=== PATIENT | female | born 1975 | race African-American/Black ===

== ENCOUNTER 2016-12-16 21:34 | Emergency (ER) | payer OTHER ==
--- NOTE | 2016-12-16 21:47 | ER Document Report ---
ED Medical Screen (RME) - General Stated Complaint: CHEST PAIN Notes: Patient complains of left neck pain for about 3 days. Went to get a massage to see if it would help with neck pain. States chest pain started yesterday and is constant. Pain radiates to back and arm. Patient states her right calf is feeling very tight and a pulling sensation. 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 Patient is currently not on blood thinners. Patient complains of shortness of breath, but denies nausea or vomiting. Patient denies any recent long distance travel. Patient denies cough or congestion. I have greeted and performed a rapid initial assessment of this patient. A comprehensive ED assessment and evaluation of the patient, analysis of test results and completion of the medical decision making process will be conducted by additional ED providers. TRAVEL OUTSIDE OF THE [place] IN LAST 30 DAYS: No - Related Data Allergies/Adverse Reactions: No Known Allergies Allergy (Verified 05/19/14 17:59) Past Medical History - Past Medical History Cardiac Medical History: Reports: Hx Pulmonary Embolism Past Surgical History: Reports: Hx Section - Immunizations Hx Diphtheria, Pertussis, Tetanus Vaccination: Yes Physical Exam - Respiratory Respiratory status: No respiratory distress Breath sounds: Normal - Extremities Notes: Right calf tender to palpation.
[2016-12-16] MEDS ORDERED: ASPIRIN 81 MG TABLET, CHEWABLE PO ONE (21:49)
[2016-12-16 22:20] LABS: ABSOLUTE BASOPHILS # (AUTO) 0.1 10^3/uL (0.0-0.2); ABSOLUTE LYMPHOCYTES (AUTO) 2.8 10^3/uL (0.5-4.7); ABSOLUTE MONOCYTES (AUTO) 0.6 10^3/uL (0.1-1.4); ABSOLUTE NEUT (AUTO) 4.8 10^3/uL (1.7-8.2); BASOPHILS % (AUTO) 0.9 % (0-2); EOSINOPHILS % (AUTO) 0.4 % (0-6); HEMATOCRIT 30.8 % (36.0-47.0); HEMOGLOBIN 9.6 g/dL (12.0-15.5); LYMPHOCYTES % (AUTO) 33.8 % (13-45); MEAN CORPUSCULAR HEMOGLOBIN 21.5 pg (27.0-33.4); MEAN CORPUSCULAR HGB CONC 31.2 g/dL (32.0-36.0); MEAN CORPUSCULAR VOLUME 69 fl (80-97); MONOCYTES % (AUTO) 7.2 % (3-13); RED BLOOD COUNT 4.47 10^6/uL (3.72-5.28); RED CELL DISTRIBUTION WIDTH 20.1 % (11.5-14.0); SEGMENTED NEUTROPHILS % (AUTO) 57.7 % (42-78); WHITE BLOOD COUNT 8.3 10^3/uL (4.0-10.5)
[2016-12-16 22:25] LABS: PROTHROMBIN TIME 12.8 SEC (11.4-15.4)
[2016-12-16 22:28] LABS: D-DIMER 0.81 ug/mL (0.00-0.50)
[2016-12-16 22:35] LABS: ALANINE AMINOTRANSFERASE 16 U/L (9-52); ALBUMIN 4.1 g/dL (3.5-5.0); ALKALINE PHOSPHATASE 94 U/L (38-126); ANION GAP 15 (5-19); ASPARTATE AMINO TRANSFERASE 14 U/L (14-36); BILIRUBIN,DIRECT 0.1 mg/dL (0.0-0.4); BILIRUBIN,TOTAL 0.4 mg/dL (0.2-1.3); BLOOD UREA NITROGEN 9 mg/dL (7-20); CALCIUM 9.8 mg/dL (8.4-10.2); CARBON DIOXIDE 22 mmol/L (22-30); CHLORIDE 103 mmol/L (98-107); CREATINE KINASE 534 U/L (30-135); CREATININE RESULT 0.58 mg/dL (0.52-1.25); GLUCOSE 107 mg/dL (75-110); POTASSIUM 3.5 mmol/L (3.6-5.0); SODIUM 139.8 mmol/L (137-145); TOTAL PROTEIN 7.3 g/dL (6.3-8.2)
[2016-12-16 22:46] LABS: CREATINE KINASE MB < 0.22 ng/mL (<4.55); TROPONIN I < 0.012 ng/mL
[2016-12-16] MEDS ORDERED: DIAZEPAM INJ 10 MG/2 ML DISP.SYRIN IV ONE (22:58)
--- NOTE | 2016-12-16 23:00 | ER Document Report ---
ED General - General Chief Complaint: Chest Pain Stated Complaint: CHEST PAIN Notes: Patient is a 41-year-old female that comes emergency department with 2 complaints. She states that 3 days ago she woke up with a "crick" in her neck, states that this progressed during the day and became increasingly painful to move in the left side of her neck extending progressively down into her left shoulder area in the back. She states she tried had this massaged and try to take ibuprofen but it only seemed to worsen. She denies any injury, headache, dizziness, fever. Patient also states that for the past 2 days she has felt some pains in the left side of her chest, she states that she feels short of breath at times. She states she also has a sore lower calf muscle on the right leg that started today. Patient has a history of PE in the past when she was on control, used to be on Coumadin but has not been for years. Patient denies smoking, recent travel, recent surgery. Patient denies any other medical history. TRAVEL OUTSIDE OF THE [place] IN LAST 30 DAYS: No - Related Data Allergies/Adverse Reactions: No Known Allergies Allergy (Verified 05/19/14 17:59) Past Medical History - General Information source: Patient, Relative - Significant other - Social History Smoking Status: Never Smoker Chew tobacco use (# tins/day): No Frequency of alcohol use: None Drug Abuse: None Lives with: Family Family History: Reviewed & Not Pertinent Patient has suicidal ideation: No Patient has homicidal ideation: No - Past Medical History Cardiac Medical History: Reports: Hx Pulmonary Embolism Renal/ Medical History: Denies: Hx Peritoneal Dialysis Past Surgical History: Reports: Hx Section - Immunizations Hx Diphtheria, Pertussis, Tetanus Vaccination: Yes Review of Systems - Review of Systems Constitutional: No symptoms reported EENT: No symptoms reported Cardiovascular: See HPI Respiratory: See HPI Gastrointestinal: No symptoms reported Genitourinary: No symptoms reported Female Genitourinary: No symptoms reported Musculoskeletal: See HPI Skin: No symptoms reported Hematologic/Lymphatic: No symptoms reported Neurological/Psychological: No symptoms reported Physical Exam - Vital signs Vitals: Temp Pulse Resp BP Pulse Ox 98.7 F 103 H 18 144/107 H 99 12/16/16 21:53 12/16/16 21:53 12/16/16 21:53 12/16/16 21:53 12/16/16 21:53 Interpretation: Normal - General General appearance: Appears well, Alert In distress: None - HEENT Head: Normocephalic, Atraumatic Eyes: Normal Pupils: PERRL - Respiratory Respiratory status: No respiratory distress Chest status: Tender - Mild generalized tenderness over the left anterior chest wall, nonspecific, no erythema, swelling, or signs of injury Breath sounds: Normal. No: Decreased air movement, Wheezing Chest palpation: Normal - Cardiovascular Rhythm: Regular, Tachycardia - Borderline Heart sounds: Normal auscultation, S1 appreciated, S2 appreciated Murmur: No - Abdominal Inspection: Normal Distension: No distension Bowel sounds: Normal Tenderness: Nontender Organomegaly: No organomegaly - Back Back: Normal, Nontender. No: Tender - Extremities General upper extremity: Normal inspection, Nontender, Normal strength, Normal temperature. No: Edema General lower extremity: Normal inspection, Nontender, Normal strength, Normal temperature. No: Edema - Neurological Neuro grossly intact: Yes Cognition: Normal Orientation: AAOx4 Fatoumata Coma Scale Eye Opening: Spontaneous Fatoumata Coma Scale Verbal: Oriented Fatoumata Coma Scale Motor: Obeys Commands Lamar Coma Scale Total: 15 Speech: Normal Cranial nerves: Normal Cerebellar coordination: Normal Motor strength normal: LUE, RUE, LLE, RLE Additional motor exam normals: Equal medication aid Sensory: Normal - Psychological Associated symptoms: Normal affect, Normal mood - Skin Skin Temperature: Warm Skin Moisture: Dry Skin Color: Normal Course - Re-evaluation Re-evalutation: Review of labs shows microcytic anemia at 9.6, mildly low potassium, no leukocytosis, cardiac enzymes unremarkable, d-dimer was reviewed and showed elevated. Patient has no significant calf tenderness or swelling on examination bilaterally. Doppler was not performed, it is after the time of night for this to be completed, this was canceled as a result. Because of elevated d-dimer, patient's history of PE, complaint of chest pain and shortness of breath, CAT scan was performed. Discussed with Dr. Valero per [facility] protocol. Shows no acute abnormalities. Patient was given valium and after this neck/shoulder pain almost completely resolved, range of motion normalize, patient smiling and relaxed now. Physical examination was consistent with muscle spasm, patient not complaining of any symptoms at all after treatment. Low suspicion of vertebral dissection on the meningitis, acute coronary syndrome based on patient's lack of headache, resolution of Valium, and generally negative workup. Patient is also young without significant comorbidities. Vital signs normalized. Provided with prescription for this, recommendations and follow-up instructions, return precautions. Patient states understanding and agreement. - Vital Signs Vital signs: Temp Pulse Resp BP Pulse Ox 97.9 F 88 16 118/75 100 12/17/16 01:43 12/17/16 01:43 12/17/16 01:43 12/17/16 01:43 12/17/16 01:43 - Laboratory Result Diagrams: 12/16/16 22:05 12/16/16 22:05 Laboratory results interpreted by me: 12/16/16 12/16/16 12/16/16 22:05 22:05 22:05 Hgb 9.6 L Hct 30.8 L MCV 69 L MCH 21.5 L MCHC 31.2 L RDW 20.1 H D-Dimer 0.81 H Potassium 3.5 L Creatine Kinase 534 H Discharge - Discharge Clinical Impression: Neck pain, Muscle pain Chest pain Qualifiers: Chest pain type: unspecified Qualified Code(s): R07.9 - Chest pain, unspecified Condition: Stable Disposition: HOME, SELF-CARE Additional Instructions: Workup does not show any acute abnormality, CT negative for any blood clots or other abnormalities. Examination is consistent with a bad muscle spasm of the cervical and trapezius muscles. Take the medication as prescribed, perform gentle stretches, apply heat to the area, avoid lifting/twisting. Follow-up with primary care for additional management. Return to emergency department for any concerning or worsening symptoms. Prescriptions: Diazepam [Valium 5 mg Tablet] 1 - 2 tab PO TID PRN #20 tablet PRN Reason: Forms: Return to Work
[2016-12-17 01:49] VITALS: BP 118/75
--- NOTE | 2016-12-17 08:36 | EKG REPORT ---
SEVERITY:- BORDERLINE ECG - SINUS TACHYCARDIA BORDERLINE T ABNORMALITIES, INFERIOR LEADS : Confirmed by: Earl Hilton MD 17-Dec-2016 08:35:21
== END 2016-12-17 01:49 | disposition home or self-care (01) ==
LOC: ER 21:34
DX: R07.9 Chest pain, unspecified (principal); M54.2 Cervicalgia; M79.1 Myalgia; Z79.01 Long term (current) use of anticoagulants
CPT/HCPCS: 93005; 99285; 96374; 36415; 82553; 82550; 85025; 85610; 80053; 84484; 85379; 71010; 71275; 93010; J3360

== ENCOUNTER → 2016-12-18 | Outpatient (CLI) | payer OTHER ==
--- NOTE | 2016-12-18 12:53 | XCELERA REPORT ---
[address] [address] Lower Extremity Venous Evaluation Name: EULALIA HYATT Age: 41 yrs Gender: Female : 1975 Patient Status: Outpatient Patient Location: Study Date: 12/18/2016 11:56 AM Procedure: Color flow and duplex imaging of the veins of the right lower extremity as well as the left Common Femoral vein. Reason For Study: RLE M79.604 Ordering Physician: CONI MAYS Performed By: Kandy Asif Right Sided Venous Evaluation Normal vessel filling wall to wall, compression and augmentation as well as Colour flow down to the infrageniculate veins. Left Sided Venous Evaluation The left common femoral vein is fully compressible. Spontaneous and phasic flow is present in the left common femoral vein. Critical Findings Called into Dr Stacy's office at 1250. Interpretation Summary No duplex evidence of DVT or obstruction in the right lower extremity nor in the left Common Femoral vein. : CONI MAYS > Benito Meyer
== END ==
LOC: SP 11:31
PROVIDERS: ATTEND Internal Medicine Gastroenterology
DX: M79.604 Pain in right leg (principal)
CPT/HCPCS: 93971

== ENCOUNTER → 2019-01-18 | Outpatient (CLI) | payer OTHER ==
[2019-01-18 11:24] LABS: ABSOLUTE BASOPHILS # (AUTO) 0.1 10^3/uL (0.0-0.2); ABSOLUTE LYMPHOCYTES (AUTO) 2.3 10^3/uL (0.5-4.7); ABSOLUTE MONOCYTES (AUTO) 0.4 10^3/uL (0.1-1.4); ABSOLUTE NEUT (AUTO) 3.5 10^3/uL (1.7-8.2); BASOPHILS % (AUTO) 0.9 % (0-2); EOSINOPHILS % (AUTO) 0.2 % (0-6); HEMATOCRIT 35.7 % (36.0-47.0); HEMOGLOBIN 11.6 g/dL (12.0-15.5); LYMPHOCYTES % (AUTO) 36.1 % (13-45); MEAN CORPUSCULAR HEMOGLOBIN 26.8 pg (27.0-33.4); MEAN CORPUSCULAR HGB CONC 32.5 g/dL (32.0-36.0); MEAN CORPUSCULAR VOLUME 83 fl (80-97); MONOCYTES % (AUTO) 6.7 % (3-13); PLATELET COUNT 250 10^3/uL (150-450); RED BLOOD COUNT 4.32 10^6/uL (3.72-5.28); SEGMENTED NEUTROPHILS % (AUTO) 56.1 % (42-78); TOTAL CELLS COUNTED % (AUTO) 100 %; WHITE BLOOD COUNT 6.3 10^3/uL (4.0-10.5)
[2019-01-18 11:44] LABS: ALANINE AMINOTRANSFERASE 17 U/L (9-52); ALBUMIN 4.3 g/dL (3.5-5.0); ALKALINE PHOSPHATASE 92 U/L (38-126); ANION GAP 6 (5-19); ASPARTATE AMINO TRANSFERASE 13 U/L (14-36); BILIRUBIN,DIRECT 0.2 mg/dL (0.0-0.4); BILIRUBIN,TOTAL 0.4 mg/dL (0.2-1.3); BLOOD UREA NITROGEN 7 mg/dL (7-20); CALCIUM 9.9 mg/dL (8.4-10.2); CARBON DIOXIDE 24 mmol/L (22-30); CHLORIDE 108 mmol/L (98-107); CHOLESTEROL 217.36 mg/dL (0-200); GLUCOSE 94 mg/dL (75-110); POTASSIUM 4.6 mmol/L (3.6-5.0); SODIUM 138.4 mmol/L (137-145); TRIGLYCERIDES 97 mg/dL (<150)
[2019-01-18 11:56] LABS: DIRECT LDL 136 mg/dL (<100)
[2019-01-18 12:44] LABS: FREE T4 (FREE THYROXINE) 1.21 ng/dL (0.78-2.19)
[2019-01-18 12:58] LABS: THYROID STIMULATING HORMONE 0.39 uIU/mL (0.47-4.68)
--- NOTE | 2019-01-18 15:33 | XCELERA REPORT ---
[address] [place] [facility] [place] [address] Lower Extremity Venous Evaluation Procedure: Color flow and duplex imaging of the veins of the right lower extremity as well as the left Common Femoral vein. Right Sided Venous Evaluation Normal vessel filling wall to wall, compression and augmentation as well as Colour flow down to the infrageniculate veins. Left Sided Venous Evaluation The left common femoral vein is fully compressible. Spontaneous and phasic flow is present in the left common femoral vein. Interpretation Summary No duplex evidence of DVT or obstruction in the right lower extremity nor in the left Common Femoral vein. Name: EULALIA HYATT Age: 43 yrs Gender: Female : 1975 Patient Status: Outpatient Patient Location: Study Date: 01/18/2019 10:59 AM Reason For Study: RLE THROMBOPHLEBITIS Ordering Physician: GHADA MERA Performed By: Kandy Asif : GHADA MERA > eBnito Meyer
== END ==
LOC: SP 10:33
PROVIDERS: ATTEND Internal Medicine
DX: I80.11 Phlebitis and thrombophlebitis of right femoral vein (principal); E66.9 Obesity, unspecified; Z13.21 Encounter for screening for nutritional disorder; R00.2 Palpitations; Z79.899 Other long term (current) drug therapy
CPT/HCPCS: 36415; 80053; 80061; 82306; 84439; 84443; 85025; 85379; 93971